=== PATIENT | male | born 2000 | race Two or more races ===

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

== ENCOUNTER 2020-01-03 08:01 | Emergency (ER) | payer SELFPAY ==
[2020-01-03 08:06] VITALS: BP 125/76
[2020-01-03 09:47] LABS: ABSOLUTE BASOPHILS # (AUTO) 0.1 10^3/uL (0.0-0.2); ABSOLUTE EOSINOPHILS # (AUTO) 0.2 10^3/uL (0.0-0.6); ABSOLUTE LYMPHOCYTES (AUTO) 1.8 10^3/uL (0.5-4.7); ABSOLUTE MONOCYTES (AUTO) 0.6 10^3/uL (0.1-1.4); ABSOLUTE NEUT (AUTO) 5.8 10^3/uL (1.7-8.2); BASOPHILS % (AUTO) 0.9 % (0-2); EOSINOPHILS % (AUTO) 1.8 % (0-6); HEMOGLOBIN 17.3 g/dL (13.5-17.0); LYMPHOCYTES % (AUTO) 21.7 % (13-45); MEAN CORPUSCULAR HEMOGLOBIN 31.1 pg (27.0-33.4); MEAN CORPUSCULAR HGB CONC 35.2 g/dL (32.0-36.0); MEAN CORPUSCULAR VOLUME 88 fl (80-97); MONOCYTES % (AUTO) 7.3 % (3-13); PLATELET COUNT 324 10^3/uL (150-450); RED BLOOD COUNT 5.55 10^6/uL (4.35-5.55); RED CELL DISTRIBUTION WIDTH 13.7 % (11.5-14.0); SEGMENTED NEUTROPHILS % (AUTO) 68.3 % (42-78); TOTAL CELLS COUNTED % (AUTO) 100 %; WHITE BLOOD COUNT 8.4 10^3/uL (4.0-10.5)
[2020-01-03 09:48] LABS: APPEARANCE,URINE CLEAR; BILIRUBIN,URINE NEGATIVE (NEGATIVE); COLOR,URINE YELLOW; GLUCOSE, URINE >=500 mg/dL (NEGATIVE); KETONES,URINE TRACE mg/dL (NEGATIVE); LEUKOCYTE ESTERASE,URINE NEGATIVE (NEGATIVE); NITRITE,URINE NEGATIVE (NEGATIVE); PROTEIN,URINE NEGATIVE (NEGATIVE); URINE SPECIFIC GRAVITY 1.046; UROBILINOGEN,URINE NEGATIVE mg/dL (<2.0)
[2020-01-03] MEDS ORDERED: ONDANSETRON HCL INJ/PF 4 MG/2 ML SDV IV ONE (09:53)
--- NOTE | 2020-01-03 10:05 | ER Document Report ---
Entered by OWEN SERRANO SCRIBE 01/03/20 0937 Acting as scribe for:AUBREE FERGUSON MD ED GI/ - General Chief Complaint: Nausea/Vomiting Stated Complaint: NAUSEA Time Seen by Provider: 01/03/20 09:35 Mode of Arrival: Ambulatory Information source: Patient Notes: This 19 year old male patient with a history of type 2 diabetes presents to the ED today with complaints of nausea, vomiting, and diarrhea that started yesterday morning around 0600. Patient states that the diarrhea has since resolved, but states he started vomiting this morning. Patient reports that he takes Novolin, Lantus, and Metformin to manage his diabetes and that his BGL was 350 at home. Patient states that his BGL was "running in the 400s" yesterday and that he uses a sliding scale. Patient notes that he isn't as nauseous as he was this morning. Patient also reports a headache, but denies abdominal pain, polydipsia, or any urinary symptoms. TRAVEL OUTSIDE OF THE [place] IN LAST 30 DAYS: No - Related Data Allergies/Adverse Reactions: metoclopramide HCl [From Reglan] Allergy (Verified 01/03/20 08:30) Seizures Past Medical History - General Information source: Patient - Social History Smoking Status: Current Some Day Smoker - Cigars x4/week Cigarette use (# per day): No Chew tobacco use (# tins/day): No Smoking Education Provided: No Frequency of alcohol use: None Drug Abuse: None Family History: Reviewed & Not Pertinent, DM, Malignancy Patient has suicidal ideation: No Patient has homicidal ideation: No Endocrine Medical History: Reports: Hx Diabetes Mellitus Type 2 Past Surgical History: Reports: Other - Lymph node removed from neck - Immunizations Immunizations up to date: Yes Review of Systems - Review of Systems Constitutional: No symptoms reported EENT: No symptoms reported Cardiovascular: No symptoms reported Gastrointestinal: See HPI, Diarrhea, Nausea, Vomiting. denies: Abdominal pain Genitourinary: No symptoms reported Male Genitourinary: No symptoms reported Musculoskeletal: No symptoms reported Skin: No symptoms reported Hematologic/Lymphatic: No symptoms reported Neurological/Psychological: See HPI, Headaches -: Yes All other systems reviewed and negative Physical Exam - Vital signs Vitals: Temp Pulse Resp BP Pulse Ox 97.7 F 98 H 20 125/76 98 01/03/20 08:02 01/03/20 08:02 01/03/20 08:02 01/03/20 08:02 01/03/20 08:02 - General General appearance: Alert, Other - Thin appearing. No ketone odor detected on breath. - HEENT Head: Normocephalic, Atraumatic Eyes: Normal Pupils: PERRL Mucous membranes: Dry - Respiratory Respiratory status: No respiratory distress Chest status: Nontender Breath sounds: Normal Chest palpation: Normal - Cardiovascular Rhythm: Regular Heart sounds: Normal auscultation Murmur: No - Abdominal Inspection: Normal Distension: No distension Bowel sounds: Normal Tenderness: Nontender - Abdomen soft Organomegaly: No organomegaly - Back Back: Normal, Nontender - Extremities General upper extremity: Normal inspection General lower extremity: Normal inspection - Neurological Neuro grossly intact: Yes - Psychological Associated symptoms: Normal affect, Normal mood - Skin Skin Temperature: Warm Skin Moisture: Dry Skin Color: Normal Course - Re-evaluation Re-evalutation: 01/03/20 14:05 The patient states he has plenty of his medications at home. He does admit to not being very compliant with taking his medicines at times. His hemoglobin A1c today is 13.4, he states last time it was checked his been a while but it was over 13 at that time. His urine does not show any proteinuria, and did have a specific gravity 1.046 He states the nauseousness is completely gone and he is feeling much better at this time he feels he would have no problems keeping fluids down. He will be given a dose of insulin 5 units IV for a blood sugar of 322 on Accu- Chek 1 hour ago. [facility] and get a prescription for Zofran so that when he does get nausea she can control it and continue to drink fluids. - Vital Signs Vital signs: Temp Pulse Resp BP Pulse Ox 97.7 F 98 H 20 125/76 98 01/03/20 08:02 01/03/20 08:02 01/03/20 08:02 01/03/20 08:02 01/03/20 08:02 - Laboratory Result Diagrams: 01/03/20 09:32 01/03/20 09:32 Laboratory results interpreted by me: 01/03/20 01/03/20 01/03/20 09:23 09:30 09:32 Hgb 17.3 H Sodium Potassium Chloride Glucose POC Glucose 325 H Hemoglobin A1c % Urine Glucose (UA) >=500 H Urine Ketones TRACE H 01/03/20 01/03/20 01/03/20 09:32 09:32 13:00 Hgb Sodium 130.9 L Potassium 5.2 H Chloride 94 L Glucose 356 H POC Glucose 322 H Hemoglobin A1c % 13.4 H Urine Glucose (UA) Urine Ketones Discharge - Discharge Clinical Impression: Poorly controlled diabetes mellitus Nausea and vomiting Qualifiers: Vomiting type: unspecified Vomiting Intractability: non-intractable Qualified Code(s): R11.2 - Nausea with vomiting, unspecified Hyperglycemia due to type 2 diabetes mellitus Qualifiers: Diabetes mellitus long-term insulin use: with long-term use Qualified Code(s): E11.65 - Type 2 diabetes mellitus with hyperglycemia; Z79.4 - shelter (current) use of insulin Condition: Stable Disposition: HOME, SELF-CARE Additional Instructions: Nausea or Vomiting, Nonspecific: Vomiting (or nausea without vomiting) can be caused by many different problems. Of course, it can mean that something's wrong with the stomach, such as "stomach flu," ulcers, or inflammation. But it can also be a symptom of a problem that has nothing to do with the stomach or intestines. Vomiting is common with severe headaches, earaches, and tonsillitis. We see it with pneumonia or heart attacks. Drugs can cause nausea. Many abdominal problems cause vomiting; for example, gallstones, kidney stones, pancreatitis, and intestinal obstruction (blocked bowels). In most cases, curing the vomiting depends on fixing the problem that caused it. For temporary relief, we may use an anti-nausea medicine. For home use, we can prescribe suppositories, chewable pills, pills that dissolve in the mouth, or liquid anti-nausea drugs. If the vomiting seems to be caused by a problem in the stomach, acid-suppressing drugs may be prescribed as well. It's important to avoid dehydration. Sip clear liquids. Take increasing amounts of fluid over the first 24 hours. Then start small amounts of bland foods (such as dry toast, applesauce, mashed potato). Avoid aspirin, tobacco, and alcohol. Gradually resume your usual diet. If the vomiting worsens, if the problem that's making you vomit worsens, or if there's evidence of bleeding in the stomach (such as black, tarry stool, bloody or black vomit, or lightheadedness), you should return immediately. Call your doctor if you aren't improved in 24 to 36 hours. Hyperglycemia (High Blood Sugar): You have an abnormally high blood sugar. Uncontrolled high blood sugar leads to early heart disease, strokes, nerve damage, eye damage, and kidney damage. Call the physician if there is faintness, excess sleepiness, or very rapid breathing. Be sure you take your medications on time every day. Drink plenty of fluids throughout the day in the evening for the next few days to completely rehydrate yourself. Use the nausea medicine if needed. Follow-up with a local medical doctor or with the [facility] to get help in managing your diabetes. RETURN TO THE EMERGENCY ROOM IF ANY NEW OR WORSENING SYMPTOMS. Prescriptions: Ondansetron [Zofran Odt 4 mg Tablet] 1 - 2 tab PO Q4H PRN #10 tab.rapdis PRN Reason: Referrals: [facility] [Provider Group] - Follow up as needed I personally performed the services described in the documentation, reviewed and edited the documentation which was dictated to the scribe in my presence, and it accurately records my words and actions.
[2020-01-03 10:12] LABS: ALBUMIN 4.5 g/dL (3.7-5.6); ALKALINE PHOSPHATASE 87 U/L (65-260); ANION GAP 11 (5-19); ASPARTATE AMINO TRANSFERASE 15 U/L (10-45); BILIRUBIN,TOTAL 0.5 mg/dL (0.2-1.3); BLOOD UREA NITROGEN 20 mg/dL (7-20); CALCIUM 9.8 mg/dL (8.4-10.2); CARBON DIOXIDE 26 mmol/L (22-30); CHLORIDE 94 mmol/L (98-107); GLUCOSE 356 mg/dL (75-110); POTASSIUM 5.2 mmol/L (3.6-5.0); TOTAL PROTEIN 7.5 g/dL (6.3-8.2)
[2020-01-03] MEDS: RINGERS SOLUTION,LACTATED 1,000 ML IV PRN ×2 (10:21→11:37)
[2020-01-03] MEDS ORDERED: INSULIN REG, HUMAN 100 UNIT/ML 3 ML VIAL (PYX) IV ONE (14:02)
[2020-01-03] MEDS ORDERED: ONDANSETRON ODT 4 MG TAB (6 TAB/ER DISP) PO PRN (14:03)
== END 2020-01-03 14:33 | disposition home or self-care (01) ==
LOC: ER 08:01
DX: R11.2 Nausea with vomiting, unspecified (principal); E11.65 Type 2 diabetes mellitus with hyperglycemia; R19.7 Diarrhea, unspecified; R51 Headache; Z79.4 Long term (current) use of insulin; F17.290 Nicotine dependence, other tobacco product, uncomplicated; Z88.8 Allergy status to other drugs, medicaments and biological substances
CPT/HCPCS: 99284; 96360; 96361; 36415; 82962; 85025; 80053; 81001; 83036; J1815; J2405; J7120

== ENCOUNTER 2020-01-08 23:20 | Emergency (ER) | payer SELFPAY ==
[2020-01-09] MEDS ORDERED: KETOROLAC TROMETHAMINE INJ/PF 30 MG/1 ML SDV IV ONE (00:15)
[2020-01-09] MEDS ORDERED: NORMAL SALINE 1000 ML 1,000 ML IV ONE (00:15)
[2020-01-09 00:41] LABS: ABSOLUTE BASOPHILS # (AUTO) 0.1 10^3/uL (0.0-0.2); ABSOLUTE EOSINOPHILS # (AUTO) 0.1 10^3/uL (0.0-0.6); ABSOLUTE LYMPHOCYTES (AUTO) 1.2 10^3/uL (0.5-4.7); ABSOLUTE MONOCYTES (AUTO) 1.1 10^3/uL (0.1-1.4); ABSOLUTE NEUT (AUTO) 4.1 10^3/uL (1.7-8.2); BASOPHILS % (AUTO) 1.1 % (0-2); EOSINOPHILS % (AUTO) 1.9 % (0-6); HEMOGLOBIN 16.1 g/dL (13.5-17.0); LYMPHOCYTES % (AUTO) 18.7 % (13-45); MEAN CORPUSCULAR HEMOGLOBIN 30.5 pg (27.0-33.4); MEAN CORPUSCULAR VOLUME 87 fl (80-97); MONOCYTES % (AUTO) 15.9 % (3-13); PLATELET COUNT 246 10^3/uL (150-450); RED BLOOD COUNT 5.27 10^6/uL (4.35-5.55); RED CELL DISTRIBUTION WIDTH 13.5 % (11.5-14.0); SEGMENTED NEUTROPHILS % (AUTO) 62.4 % (42-78); TOTAL CELLS COUNTED % (AUTO) 100 %; WHITE BLOOD COUNT 6.6 10^3/uL (4.0-10.5)
--- NOTE | 2020-01-09 00:53 | ER Document Report ---
ED General - General Chief Complaint: High Blood Sugar Stated Complaint: FLU LIKE SYMPTOMS Time Seen by Provider: 01/08/20 23:53 Mode of Arrival: Ambulatory Information source: Patient TRAVEL OUTSIDE OF THE [place] IN LAST 30 DAYS: No - HPI Onset: Other - since last Wednesday Onset/Duration: Gradual Quality of pain: Achy Severity: Moderate Pain Level: 1 Associated symptoms: Body/muscle aches, Chills, Nonproductive cough, Fever, Nausea, Vomiting, Sore throat Exacerbated by: Coughing Relieved by: Denies Similar symptoms previously: No Recently seen / treated by doctor: No Notes: 19 year old male smoker with a history of Diabetes on Metformin and Insulin here in the ER for a cough, congestion, sore throat, body aches, fevers, and high blood sugars since last Wednesday. The patient denies known sick contacts. The patient said his blood sugar at home were in the 400s this evening so he took his long acting insulin. - Related Data Allergies/Adverse Reactions: metoclopramide HCl [From Reglan] Allergy (Verified 01/03/20 08:30) Seizures Past Medical History - General Information source: Patient - Social History Smoking Status: Current Some Day Smoker Chew tobacco use (# tins/day): No Frequency of alcohol use: None Drug Abuse: None Family History: Reviewed & Not Pertinent, DM, Malignancy Patient has suicidal ideation: No Patient has homicidal ideation: No - Past Medical History Cardiac Medical History: Denies: Hx Atrial Fibrillation, Hx Congestive Heart Failure, Hx Coronary Artery Disease, Hx DVT, Hx Heart Attack, Hx Hypercholesterolemia, Hx Hypertension, Hx Peripheral Vascular Disease, Hx Pulmonary Embolism, Hx Heart Murmur Endocrine Medical History: Reports: Hx Diabetes Mellitus Type 2 Renal/ Medical History: Denies: Hx Peritoneal Dialysis Past Surgical History: Reports: Other - Lymph node removed from neck - Immunizations Immunizations up to date: Yes Review of Systems - Review of Systems Constitutional: Chills, Fever, Malaise EENT: Throat pain Cardiovascular: No symptoms reported Respiratory: Cough Gastrointestinal: No symptoms reported Genitourinary: No symptoms reported Male Genitourinary: No symptoms reported Musculoskeletal: Other - body aches Skin: No symptoms reported Hematologic/Lymphatic: No symptoms reported Neurological/Psychological: No symptoms reported -: Yes All other systems reviewed and negative Physical Exam - Vital signs Vitals: Resp Pulse Ox 20 99 01/08/20 23:25 01/08/20 23:25 - Notes Notes: GENERAL: Well-appearing, well-nourished and in no acute distress. HEAD: Atraumatic, normocephalic. EYES: Pupils equal round and reactive to light, extraocular movements intact, sclera anicteric, conjunctiva are normal. ENT: Nares patent, oropharynx erythematous but without exudates. Moist mucous membranes. NECK: Normal range of motion, supple without lymphadenopathy or JVD. LUNGS: Breath sounds clear to auscultation bilaterally and equal. No wheezes rales or rhonchi. HEART: Regular rate and rhythm without murmurs, rubs or gallops. ABDOMEN: Soft, nontender, normoactive bowel sounds. No guarding, no rebound. No masses appreciated. EXTREMITIES: Normal range of motion, no pitting or edema. No clubbing or cyanosis. NEUROLOGICAL: Cranial nerves II through XII grossly intact. Normal speech, normal gait. PSYCH: Normal mood, normal affect. SKIN: Warm, Dry, normal turgor, no rashes or lesions noted. Course - Re-evaluation Re-evalutation: 01/09/20 01:06 The patient is here for a cough, sore throat, body aches, fevers, and high blood sugars since last Wednesday. The patient tested negative for the Flu and for Influenza. The patient is afebrile here in the ER with a blood sugar of 91. Patient is safe for outpatient follow up. Although COVID19 likely has community spread at this point the patient has no known sick contacts so he likely has another viral illness. - Vital Signs Vital signs: Temp Pulse Resp BP Pulse Ox 99.6 F 103 H 24 119/66 99 01/09/20 01:21 01/08/20 23:26 01/09/20 01:01 01/09/20 01:01 01/09/20 01:01 - Laboratory Result Diagrams: 01/09/20 00:29 01/09/20 00:29 Laboratory results interpreted by me: 01/08/20 01/09/20 23:44 00:29 Mccreary % (Auto) 15.9 H POC Glucose 197 H - Diagnostic Test Radiology reviewed: Image reviewed, Reports reviewed Discharge - Discharge Clinical Impression: URI (upper respiratory infection) Qualifiers: URI type: unspecified viral URI Qualified Code(s): J06.9 - Acute upper respiratory infection, unspecified Hyperglycemia due to type 2 diabetes mellitus Qualifiers: Diabetes mellitus 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 Drink plenty of water in the days to come. Follow up with your primary care doctor to ensure resolution of symptoms and to get better control of your blood sugars. Return to an ER if worse. You tested negative for the Flu and Strep Throat in the ER today.
[2020-01-09 00:58] LABS: ALBUMIN 4.4 g/dL (3.7-5.6); ALKALINE PHOSPHATASE 87 U/L (65-260); ANION GAP 11 (5-19); ASPARTATE AMINO TRANSFERASE 17 U/L (10-45); BILIRUBIN,TOTAL 0.4 mg/dL (0.2-1.3); BLOOD UREA NITROGEN 15 mg/dL (7-20); CALCIUM 9.9 mg/dL (8.4-10.2); CARBON DIOXIDE 27 mmol/L (22-30); CHLORIDE 101 mmol/L (98-107); GLUCOSE 91 mg/dL (75-110); POTASSIUM 3.9 mmol/L (3.6-5.0); TOTAL PROTEIN 7.6 g/dL (6.3-8.2)
[2020-01-09 01:04] LABS: A TYPE INFLUENZA AG NEGATIVE (NEGATIVE)
[2020-01-09 01:05] LABS: B INFLUENZA AG NEGATIVE (NEGATIVE)
--- NOTE | 2020-01-09 01:47 | RADIOLOGY REPORT (SQ) ---
EXAM DESCRIPTION: XR CHEST 1 VIEW COMPLETED DATE/TME: 01/09/2020 00:54 CLINICAL HISTORY: 19 years, Male, eval for pneumonia COMPARISON: None. NUMBER OF VIEWS: Single TECHNIQUE: LIMITATIONS: None. FINDINGS: Cardiomediastinal silhouette is normal. Lungs grossly clear. Subtle perihilar interstitial prominence. No effusion. No pneumothorax IMPRESSION: Subtle interstitial prominence with peribronchial cuffing. No focal airspace disease copyright 2010 [employer]- All Rights Reserved
[2020-01-09 02:06] VITALS: BP 108/58
== END 2020-01-09 02:24 | disposition home or self-care (01) ==
LOC: ER 23:20
DX: J06.9 Acute upper respiratory infection, unspecified (principal); E11.65 Type 2 diabetes mellitus with hyperglycemia; M79.10 Myalgia, unspecified site; R50.9 Fever, unspecified; F17.200 Nicotine dependence, unspecified, uncomplicated; Z79.4 Long term (current) use of insulin; Z79.84 Long term (current) use of oral hypoglycemic drugs
CPT/HCPCS: 99283; 96361; 96374; 36415; 87070; 87880; 82962; 85025; 80053; 87804; 71045; J1885; J7030